=== PATIENT | female | born 1995 | race American Indian/Alaskan Native ===

== ENCOUNTER 2018-09-10 07:10 | Inpatient (IN) | payer OTHER ==
[2018-09-10 07:52] VITALS: BMI 24.3
[2018-09-10] MEDS ORDERED: cefOXitin IV 2 gm in Dextrose 2 GM/50 ML BAG IVPB ONE ×2 (07:54→08:29)
[2018-09-10] MEDS ORDERED: Lactated Ringer's 1,000 ML IV ONE (07:54)
[2018-09-10] MEDS ORDERED: Sodium Citrate/Citric Acid 15 ml Sol PO ONE (07:54)
[2018-09-10 08:29] LABS: BASO % 0.4 % (0.0-2.0); EOS # 0.1 K/uL (0.0-0.7); EOS % 1.4 % (0.0-4.0); HEMOGLOBIN 10.4 g/dL (11.0-16.0); LYMPH # 1.9 K/uL (1.0-4.3); LYMPH % 23.2 % (20.0-40.0); MEAN CELL VOLUME 96.8 fL (81.0-99.0); MEAN CORPUSCULAR HEMOGLOBIN 31.7 pg (27.0-31.0); MEAN CORPUSCULAR HGB CONC 32.8 g/dL (33.0-37.0); MEAN PLATELET VOLUME 9.3 fL (7.2-11.7); MONO # 0.7 K/uL (0.0-0.8); MONO % 8.3 % (0.0-10.0); NEUT # 5.6 K/uL (1.8-7.0); NEUT % 66.7 % (50.0-75.0); RBC 3.28 Mil/uL (3.80-5.20); WHITE BLOOD COUNT 8.4 K/uL (4.8-10.8)
[2018-09-10] MEDS ORDERED: Sodium Citrate/Citric Acid 15 ml Sol ONE (08:29)
[2018-09-10] MEDS ORDERED: ePHEDrine 50 mg/ml Inj ONE (08:35)
[2018-09-10] MEDS ORDERED: Phenylephrine 10 mg/ml Inj ONE (08:35)
[2018-09-10] MEDS ORDERED: Morphine 1 mg/ml preservative-free Inj(Duramorph) ONE ×2 (08:36→18:34)
[2018-09-10 08:45] LABS: ALB/GLOB RATIO 1.4 (1.0-2.1); ALBUMIN 3.7 g/dL (3.5-5.0); ALT/SGPT 16 U/L (9-52); AST/SGOT 35 U/L (14-36); BLOOD UREA NITROGEN 12 mg/dL (7-17); CALCIUM 8.7 mg/dl (8.6-10.4); GFR NON-AFRICAN AMERICAN > 60
--- NOTE | 2018-09-10 09:01 | OBHP ---
Datetime: 09/10/2018 07:33 IP Chief Complaint: Uterine contractions; Suspected ruptured membranes
[2018-09-10 09:16] LABS: HEPATITIS B SURFACE AG Negative (NEGATIVE)
[2018-09-10] MEDS ORDERED: Oxytocin 20 units in LR 2,000 ML IV ONE (09:24)
[2018-09-10] MEDS ORDERED: Oxytocin 10 Units/ml Inj ONE (09:26)
[2018-09-10] MEDS ORDERED: Midazolam 2 MG/2 ML VIAL ONE ×2 (09:31→16:21)
[2018-09-10 11:32] LABS: SQUAMOUS EPITHIAL 1 /hpf (0-5); URINE BILIRUBIN NEGATIVE (NEGATIVE); URINE BLOOD NEGATIVE (NEGATIVE); URINE CLARITY Clear (Clear); URINE COLOR Yellow (YELLOW); URINE GLUCOSE (UA) NORMAL (Normal); URINE LEUKOCYTE ESTERASE NEG Leu/uL (Negative); URINE PROTEIN NEGATIVE (NEGATIVE); URINE UROBILINOGEN NORMAL mg/dL (0.2-1.0)
--- NOTE | 2018-09-10 11:37 | OBDS ---
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 RN Comments: Father of Baby present for delivery. Accompanied to nursery from OR for paterna l bonding. Provider Comments: Primary LTC C/S secondary to Satya Breech presentation, SROM and active labor. In larry delivered from RSA position with difficulty because presenting part was down at 0-+1 station. Li ght meconium noted from AF and bulb syringe was utilizedd to suctioned naso and oropharynx at time of delivery. Cord blood and cord pH obtained and sent. Placenta delivered complete and intact and sent to Pathology. Apgars 9_9 and BW 6 lbs 2oz. Pt and both tolerated the procedure well and remained in Stable and Satisfactory condition . Retirement Officer: Dr. Mullins Personal Injury Legal Assistant: Dr. Winston LABOR SUMMARY EDC: 09/22/2018 00:00 No. Babies in Womb: 1 Attempted: No Labor Anesthesia: Intrathecal LABOR INFORMATION Reason for Induction: Not Applicable Reason for Induction Other: N/A Onset of Labor: 09/10/2018 06:45 Other Ripening Agents: N/A Oxytocin: N/A Group B Beta Strep: Unknown Antibiotics # of Doses: 1 Antibiotics Time of Last Dose: Prior to OR - Mefoxin 2gm Steroids Given: None Reason Steroids Not Administered: Not Applicable Other Reason Not Administered: N/A MEMBRANES Membranes Rupture Method: Spontaneous Rupture of Membranes: 09/10/2018 06:30 Length of Rupture (hrs): 2.93 Amniotic Fluid Color: Clear Amniotic Fluid Amount: Large Amniotic Fluid Odor: Normal STAGES OF LABOR Stage 3 hrs: 0 Stage 3 min: 2 Total Time in Labor hrs: 2 Total Time in Labor min: 43 CSECTION DELIVERY Primary Indication: Breech Presentation Other Primary Indication: N/A Secondary Indication: N/A Other Secondary Indication: N/A CSection Urgency: Emergency CSection Incidence: Primary Labor: Labor Elective: N/A CSection Incision: Lower Uterine Transverse CSection Incision Other: N/A Other Sterilization Procedure: N/A BABY A INFORMATION Delivery Date/Time: 09/10/2018 09:26 Method of Delivery: Born in Route : No : N/A Forceps: N/A Vacuum Extraction: N/A Shoulder Dystocia : No SHOULDER DYSTOCIA BABY A Infant Delivery Date/Time: 09/10/2018 09:26 PRESENTATION/POSITION BABY A Presentation: Breech Cephalic Presentation: N/A Vertex Position: N/A Breech Presentation: Satya PLACENTA INFORMATION BABY A Placenta Delivery Time : 09/10/2018 09:28 Placenta Method of Delivery: Manual Removal Placenta Status: Delivered SCORES BABY A Heart Rate 1 min: >100 bpm Resp Effort 1 min: Good Cry Reflex Irritability 1 min: Cough or Sneeze or Pulls Away Muscle Tone 1 min: Active Motion Color 1 min: Body [place], Extremities Blue Resuscitation Effort 1 min: Tactile Stimulation SCORE 1 MIN: 9 Heart Rate 5 min: >100 bpm Resp Effort 5 min: Good [place] Reflex Irritability 5 min: Cough or Sneeze or Pulls Away Muscle Tone 5 min: Active Motion Color 5 min: Body [place], Extremities Blue Resuscitation Effort 5 min: N/A SCORE 5 MIN: 9 INFORMATION BABY A Gestational Age at Delivery: 38.2 Gestational Status: Term Outcome : Liveborn Infant Condition : Stable Sex: Male IDENTIFICATION/MEDS BABY A ID Band Number: [id number] ID Band Location: Left Leg; Left Arm Sensor Applied: Yes Sensor Number: [id number] Sensor Location : Cord Clamp WEIGHT/LENGTH BABY A Birthweight (gms): 2765 Infant Weight (lb): 6 Weight (oz): 2 Length Inches: 18.00 Length cms: 45.7 CORD INFORMATION BABY A No. Cord Vessels: 3 Nuchal Cord : N/A Nuchal Cord Other: N/A True Knot: N/A Cord pH Baby Arterial: 7.15 Cord pH Baby Venous: 7.33 Cord Blood Taken: Yes Banking/Donate Info: N/A Suction: None; Mouth ASSESSMENT BABY A Complications: Meconium; Other Infant Complications Other: Breech Presentation Physical Findings at Delivery: Within Normal Limits Infant Respirations: Appears Normal Compensation Adjuster/ALS Called : Yes Care By: Dr. Arthur Aden RN Transferred To: [facility]
[2018-09-10] MEDS ORDERED: Oxycodone/Acetaminophen 5/325 mg Tab PO PRN (11:40)
[2018-09-10 12:05] LABS: BARBITURATES, UR NEGATIVE (NEGATIVE); BENZODIAZEPINES, UR NEGATIVE (NEGATIVE); OPIATES, UR NEGATIVE (NEGATIVE); PHENCYCLIDINE, UR NEGATIVE (NEGATIVE)
[2018-09-10] MEDS ORDERED: Bupivacaine HCl 0.5% PF (10 ml) Inj ONE (12:56)
[2018-09-10] MEDS ORDERED: Lidocaine 2% MPF (5 ml) Inj ONE (12:56)
[2018-09-10] MEDS: Simethicone 80 mg Chewtab PO SCH ×3 (14:15→21:24)
--- NOTE | 2018-09-10 15:21 | CP.PCM.CON ---
History of Present Illness - History of Present Illness History of Present Illness: 23 yo female admitted for rupture of membranes s/p delivery of baby by C Section for breech presentation ID consulted for cont of HIV meds Dx with HIV at time of and started on HIV meds with good results after 6-8 weeks gestation Review of Systems - Review of Systems All systems: reviewed and no additional remarkable complaints except - Constitutional Constitutional: As Per HPI - EENT Eyes: absent: As Per HPI, Blind Spots, Blurred Vision, Change in Vision, Decreased Night Vision, Diplopia, Discharge, Dry Eye, Exophthalmos, Floaters, Irritation, Itchy Eyes, Loss of Peripheral Vision, Pain, Photophobia, Requires Corrective Lenses, Sees Flashes, Spots in Vision, Tunnel Vision, Other Visual Disturbances, Loss of Vision, Other Ears: absent: As Per HPI, Decreased Hearing, Ear Discharge, Ear Pain, Tinnitus, Abnormal Hearing, Disequilibrium, Dizziness, Other Nose/Mouth/Throat: absent: As Per HPI, Epistaxis, Nasal Congestion, Nasal Discharge, Nasal Obstruction, Nasal Trauma, Nose Pain, Post Nasal Drip, Sinus Pain, Sinus Pressure, Bleeding Gums, Change in Voice, Dental Pain, Dry Mouth, Dysphagia, Halitosis, Hoarsness, Lip Swelling, Mouth Lesions, Mouth Pain, Odynophagia, Sore Throat, Throat Swelling, Tongue Swelling, Facial Pain, Neck Pain, Neck Mass, Other - Breasts Breasts: absent: As Per HPI, Change in Shape, Mass, Pain, Nipple Discharge, Nipple Inversion, Skin Changes, Swelling, Other - Cardiovascular Cardiovascular: absent: As Per HPI, Acrocyanosis, Chest Pain, Chest Pain at Rest, Chest Pain with Activity, Claudication, Diaphoresis, Dyspnea, Dyspnea on Exertion, Edema, Irregular Heart Rhythm, Pain Radiating to Arm/Neck/Jaw, Leg Edema, Leg Ulcers, Lightheadedness, Orthopnea, Palpitations, Paroxysmal Nocturnal Dyspnea, Pedal Edema, Radiating Pain, Rapid Heart Rate, Slow Heart Rate, Syncope, Other - Respiratory Respiratory: absent: As Per HPI, Cough, Dyspnea, Hemoptysis, Dyspnea on Exert ion, Wheezing, Snoring, Stridor, Pain on Inspiration, Chest Congestion, Excessive Mucous Production, Change in Mucous Color, Pain with Coughing, Other - Gastrointestinal Gastrointestinal: absent: As Per HPI, Abdominal Pain, Belching, Bloating, Change in Bowel Habits, Change in Stool Character, Coffee Ground Emesis, Constipation, Cramping, Diarrhea, Dyspepsia, Dysphagia, Early Satiety, Excessive Flatus, Fecal Incontinence, Heartburn, Hematemesis, Hematochezia, Loose Stools, Melena, Nausea, Odynophagia, Temesmus, Vomiting, Other - Genitourinary Genitourinary: absent: As Per HPI, Change in Urinary Stream, Difficulty U rinating, Dysuria, Flank Pain, Hematuria, Pyuria, Nocturia, Urinary Incontinence, Urinary Frequency, Urinary Hesitance, Urinary Urgency, Voiding Freq/Small Amts, Freq UTI, Hx Renal/Bladder Calculi, Hx /Renal Surgery, Bladder Distension, Other - Reproductive: Female Reproductive:Female: As Per HPI - Menstruation Menstruation: As Per HPI - Musculoskeletal Musculoskeletal: absent: As Per HPI, Abnormal Gait, Arthralgias, Atrophy, Back Pain, Deformity, Joint Swelling, Limited Range of Motion, Loss of Height, Muscle Cramps, Muscle Weakness, Myalgias, Neck Pain, Numbness, Radiating Pain into Limb, Stiffness, Tingling, Other - Integumentary Integumentary: absent: As Per HPI, Acne, Alopecia, Bleeding Lesions, Change in Hair, Change in Nails, Change in Pigmentation, Changing Lesions, Dry Skin, Erythema, Furuncle, Hirsutism, Lesions, New Lesions, Non-Healing Lesions, Photosensitivity, Pruritus, Rash, Skin Pain, Skin Ulcer, Sores, Striae, S welling, Unusual Bruising, Wounds, Jaundice, Other - Neurological Neurological: absent: As Per HPI, Abnormal Gait, Abnormal Hearing, Abnormal Movements, Abnormal Speech, Behavioral Changes, Burning Sensations, Confusion, Convulsions, Disequilibrium, Dizziness, Numbness, Focal Weakness, Frequent Falls, Headaches, Lack of Coordination, Loss of Vision, Memory Loss, Paresthesias, Radicular Pain, Restless Legs, Sensory Deficit, Syncope, Tingling, Tremor, Vertigo, Weakness, Other Visual Disturbances, Other - Psychiatric Psychiatric: absent: As Per HPI, Abnormal Sleep Pattern, Anhedonia, Anxiety, Auditory Hallucinations, Behavioral Changes, Change in Appetite, Change in Libido, Confusion, Depression, Difficulty Concentrating, Hallucinations, Homicidal Ideation, Hopelessness, Irritability, Memory Loss, Mood Swings, Panic Attacks, Paranoia, Suicidal Ideation, Visual Hallucinations, Tactile Hallucinations, Other - Endocrine Endocrine: absent: As Per HPI, Change in Body Appearance, Change in Libido, Cold Intolorance, Deepening of Voice, Excessive Sweating, Fatigue, Flushing, Heat Intolorance, Increase in Ring/Shoe/Hat Size, Palpitations, Polydipsia, Polyphagia, Polyuria, Other - Hematologic/Lymphatic Hematologic: absent: As Per HPI, Easy Bleeding, Easy Bruising, Lymphadenopathy, Other Meds Allergies/Adverse Reactions: Allergies Allergy/AdvReac Type Severity Reaction Status Date / Time No Known Allergies Allergy Verified 09/10/18 07:52 - Medications Medications: Current Medications Bisacodyl (Dulcolax) 10 mg PO ONCE ONE Stop: 09/11/18 10:13 Docusate Sodium (Colace) 100 mg PO BID [facility] Lactated Ringer's (Lactated Ringer's) 1,000 mls @ 999 mls/hr IV .Q1H1M ONE Last Admin: 09/10/18 07:35 Dose: 999 mls/hr Oxytocin (Pitocin 20 Units In Lr) 1,000 mls @ 125 mls/hr IV .Q8H ONE Stop: 09/10/18 18:08 Last Admin: 09/10/18 09:29 Dose: 125 mls/hr Cefoxitin Sodium (Mefoxin Iv 2 Gm Duplex) 2 gm in 50 mls @ 50 mls/hr IVPB Q8H [facility]; Protocol Stop: 09/11/18 09:29 Ketorolac Tromethamine (Toradol) 30 mg IVP Q6 PRN PRN Reason: Pain, severe (8-10) Stop: 09/11/18 06:01 Oxycodone/Acetaminophen (Percocet 5/325 Mg Tab) 1 tab PO Q4H PRN PRN Reason: Pain, moderate (4-7) Stop: 09/13/18 10:10 Oxycodone/Acetaminophen (Percocet 5/325 Mg Tab) 2 tab PO Q4H PRN PRN Reason: Pain, severe (8-10) Stop: 09/13/18 11:41 Multivit/Folic Acid/Iron () 1 tab PO DAILY [facility] Sennosides (Senokot Tab) 17.2 mg PO HS [facility] Simethicone (Mylicon Chew Tab) 80 mg PO QID [facility] Last Admin: 09/10/18 14:15 Dose: 80 mg Physical Exam - Constitutional Appears: Well, Non-toxic, No Acute Distress - Head Exam Head Exam: ATRAUMATIC, NORMAL INSPECTION, NORMOCEPHALIC - Eye Exam Eye Exam: EOMI, Normal appearance, PERRL Pupil Exam: NORMAL ACCOMODATION, PERRL - ENT Exam ENT Exam: Mucous Membranes Moist, Normal Exam - Neck Exam Neck exam: Positive for: Normal Inspection - Respiratory Exam Respiratory Exam: Clear to Auscultation Bilateral, NORMAL BREATHING PATTERN - Cardiovascular Exam Cardiovascular Exam: REGULAR RHYTHM - GI/Abdominal Exam GI & Abdominal Exam: Normal Bowel Sounds, Soft. absent: Tenderness - Rectal Exam Rectal Exam: Deferred - Exam Exam: NORMAL INSPECTION Additional comments: protuberant abd nontender transverse c section incision healiung well - Extremities Exam Extremities exam: Positive for: normal inspection - Back Exam Back exam: NORMAL INSPECTION - Neurological Exam Neurological exam: Alert, CN II-XII Intact, Normal Gait, Oriented x3, Reflexes Normal - Psychiatric Exam Psychiatric exam: Normal Affect, Normal Mood - Skin Skin Exam: Dry, Intact, Normal Color, Warm Results - Labs Result Diagrams: 09/10/18 08:24 09/10/18 08:24 Labs: Laboratory Results - last 24 hr 09/10/18 09/10/18 09/10/18 08:24 08:24 08:24 WBC 8.4 RBC 3.28 L Hgb 10.4 L Hct 31.8 L MCV 96.8 MCH 31.7 H MCHC 32.8 L RDW 13.0 Plt Count 205 MPV 9.3 Neut % (Auto) 66.7 Lymph % (Auto) 23.2 [place] % (Auto) 8.3 Eos % (Auto) 1.4 Baso % (Auto) 0.4 Neut # (Auto) 5.6 Lymph # (Auto) 1.9 [place] # (Auto) 0.7 Eos # (Auto) 0.1 Baso # (Auto) 0.0 Sodium 135 Potassium 3.7 Chloride 108 H Carbon Dioxide 21 L Anion Gap 10 BUN 12 Creatinine 0.6 L Est GFR ( Amer) > 60 Est GFR (Non-Af Amer) > 60 Random Glucose 75 Calcium 8.7 Total Bilirubin 0.8 AST 35 ALT 16 Alkaline Phosphatase 118 Total Protein 6.3 Albumin 3.7 Globulin 2.6 Albumin/Globulin Ratio 1.4 Urine Color Urine Clarity Urine pH Ur Specific [place] Urine Protein Urine Glucose (UA) Urine Ketones Urine Blood Urine Nitrate Urine Bilirubin Urine Urobilinogen Ur Leukocyte Esterase Urine WBC (Auto) Urine RBC (Auto) Ur Squamous Epith Cells Urine Opiates Screen Urine Methadone Screen Ur Barbiturates Screen Ur Phencyclidine Scrn Ur Amphetamines Screen U Benzodiazepines Scrn U Oth Cocaine Metabols U Cannabinoids Screen Hep Bs Antigen Negative HIV 1&2 Antibody Screen Blood Type O POSITIVE Antibody Screen Negative 09/10/18 09/10/18 09/10/18 08:24 11:05 11:05 WBC RBC Hgb Hct MCV MCH MCHC RDW Plt Count MPV Neut % (Auto) Lymph % (Auto) [place] % (Auto) Eos % (Auto) Baso % (Auto) Neut # (Auto) Lymph # (Auto) [place] # (Auto) Eos # (Auto) Baso # (Auto) Sodium Potassium Chloride Carbon Dioxide Anion Gap BUN Creatinine Est GFR ( Amer) Est GFR (Non-Af Amer) Random Glucose Calcium Total Bilirubin AST ALT Alkaline Phosphatase Total Protein Albumin Globulin Albumin/Globulin Ratio Urine Color Yellow Urine Clarity Clear Urine pH 7.0 Ur Specific [place] 1.016 Urine Protein Negative Urine Glucose (UA) Normal Urine Ketones Negative Urine Blood Negative Urine Nitrate Negative Urine Bilirubin Negative Urine Urobilinogen Normal Ur Leukocyte Esterase Neg Urine WBC (Auto) 1 Urine RBC (Auto) 1 Ur Squamous Epith Cells 1 Urine Opiates Screen Negative Urine Methadone Screen Negative Ur Barbiturates Screen Negative Ur Phencyclidine Scrn Negative Ur Amphetamines Screen Negative U Benzodiazepines Scrn Negative U Oth Cocaine Metabols Negative U Cannabinoids Screen Negative Hep Bs Antigen HIV 1&2 Antibody Screen Reactive Blood Type Antibody Screen Assessment & Plan - Assessment and Plan (Free Text) Assessment: Hx HIV asymptomatic s/p c section delivery live baby boy will cont antivirals
[2018-09-10] MEDS: Emtricitabine-Tenofovir 200 mg-300 mg Tab PO SCH (15:47)
[2018-09-10] MEDS: cefOXitin IV 2 gm in Dextrose 2 GM/50 ML BAG IVPB SCH (15:49)
[2018-09-10] MEDS ORDERED: Lidocaine Hydrochloride 20 ML INJ ONE (16:15)
[2018-09-10] MEDS ORDERED: EPINEPHrine 1 mg/ml (1:1000) Inj ONE (16:17)
[2018-09-10] MEDS ORDERED: Ketamine 50 mg/ml Inj (10 ml) ONE (16:21)
[2018-09-10] MEDS ORDERED: Propofol 10 mg/ml Inj (20 ML) ONE (17:51)
[2018-09-10] MEDS ORDERED: Lidocaine Hydrochloride 5 ML INJ ONE (18:15)
[2018-09-10] MEDS: Oxycodone/Acetaminophen 5/325 mg Tab PO PRN (21:23)
[2018-09-11] MEDS: cefOXitin IV 2 gm in Dextrose 2 GM/50 ML BAG IVPB SCH ×2 (00:10→08:30)
[2018-09-11] MEDS: Oxycodone/Acetaminophen 5/325 mg Tab PO PRN ×2 (03:07→08:32)
[2018-09-11 07:42] LABS: HEMOGLOBIN 9.5 g/dL (11.0-16.0); MEAN CORPUSCULAR HEMOGLOBIN 30.8 pg (27.0-31.0); MEAN CORPUSCULAR HGB CONC 32.5 g/dL (33.0-37.0); MEAN PLATELET VOLUME 8.8 fL (7.2-11.7); RBC 3.07 Mil/uL (3.80-5.20); RED CELL DISTRIBUTION WIDTH 12.9 % (11.5-14.5)
[2018-09-11 07:46] LABS: WHITE BLOOD COUNT 14.2 K/uL (4.8-10.8)
[2018-09-11] MEDS: Simethicone 80 mg Chewtab PO SCH ×4 (09:40→22:53)
[2018-09-11] MEDS: Prenatal Multivit/Folic Acid/Iron Tab PO SCH (09:41)
[2018-09-11] MEDS: Emtricitabine-Tenofovir 200 mg-300 mg Tab PO SCH (09:42)
[2018-09-11] MEDS ORDERED: Bisacodyl 5mg EC Tab PO ONE (10:12)
[2018-09-11] MEDS: Oxycodone/Acetaminophen 5/325 mg Tab PO SCH ×3 (11:20→22:51)
[2018-09-12] MEDS: Oxycodone/Acetaminophen 5/325 mg Tab PO SCH ×4 (05:07→23:18)
[2018-09-12] MEDS: Prenatal Multivit/Folic Acid/Iron Tab PO SCH (09:50)
[2018-09-12] MEDS: Simethicone 80 mg Chewtab PO SCH ×4 (09:51→21:11)
[2018-09-12] MEDS: Emtricitabine-Tenofovir 200 mg-300 mg Tab PO SCH (09:52)
--- NOTE | 2018-09-12 14:13 | OBDCSUM ---
Datetime: 09/12/2018 14:11 Discharged to, Provider: Home Follow up at, Provider: Dr Angulo Disch Instr Activity: Normal activity Disch Instr Diet: Regular Discharge Instructions, Provider: Routine instructions given Discharge Diagnosis, Provider: Term Delivered Discharge Time: 09/13/2018 11:00 Follow up in weeks, Provider: 6 weeks Disch Referrals: None Contraception discussed, Prov: Yes Disch Activity Restrictions: No sexual activity; Nothing in vagina - [place], tampons, douche Discharge Comment, Provider: f/u Dr Moya as ifnomred dc in am Discharge Diagnosis Prov Other: HIV postive Contraception after Delivery: Not Planning to Use
--- NOTE | 2018-09-12 14:13 | OBPPN ---
Datetime: 09/12/2018 14:11 PP Pain Prov: Within normal limits PP Nausea Prov: Denies PP Flatus Prov: Yes PP Breasts Prov: Normal PP Heart Prov: Normal PP Lungs Prov: Normal PP Abdomen/Uterus Prov: Normal PP Lochia Prov: Normal PP Vulva/Perineum Prov: Normal PP CVA Tenderness Prov: Normal PP Extremities Prov: Normal PP C/S Incision Prov: Normal PP Progress Prov: Not Applicable PP Comments Phys Exam Prov: inicn c/d/i stapels intackt PP Impression Prov: Normal progression PP Plan Prov: Continue present management Datetime: 09/11/2018 14:13 PP BM Prov: No PP Progress Note Prov: Patient seen and examined this mormning sitting in chair. Patient reports lo wer abdominal pain around incision site that is 5/10. Pt has been taking percocet with some relief. P atient reports scant lochia, used one pad overnight. Pt denies flatus/BM. Patient has not tried ambul ating as of this morning. Patient is tolerating clear liquids, no episodes of nausea/vomtting today. Patient is not breast feeding due to positive HIV status. Patient reports occasional chills and lower right rib pain. Denies fever, chespt pain, headache, lightheadedness, and dizziness. P.E. As above. Assessment and Plan Patient is a 23yo with , HIV+ female, s/p LTPCS secondary to Satya Breech presentation, POD # 1, vitals reviewed and stable, /GI function returning to normal. - continue present post-op managment - encourage ambulation - advance diet as tolerated - percocet and motrin as needed for pain. - Reccomendations appreciated from ID- Dr. Moya Case discussed with Dr. Quiroz. Osiris Walls OMS-III Baldo Mckeon OMS III agree with avoe pt seen and examiend continuve id recms pain managment no bresat feeding IP PP Procedures: None Vital Signs Provider PP: Reviewed; Within Normal Limits
[2018-09-13] MEDS: Oxycodone/Acetaminophen 5/325 mg Tab PO SCH ×3 (05:18→17:39)
[2018-09-13 07:38] LABS: BASO % 0.4 % (0.0-2.0); EOS # 0.1 K/uL (0.0-0.7); EOS % 1.5 % (0.0-4.0); HEMOGLOBIN 9.2 g/dL (11.0-16.0); LYMPH # 1.4 K/uL (1.0-4.3); LYMPH % 17.5 % (20.0-40.0); MEAN CELL VOLUME 96.2 fL (81.0-99.0); MEAN CORPUSCULAR HGB CONC 33.3 g/dL (33.0-37.0); MEAN PLATELET VOLUME 8.1 fL (7.2-11.7); MONO # 0.5 K/uL (0.0-0.8); MONO % 6.7 % (0.0-10.0); NEUT % 73.9 % (50.0-75.0); RBC 2.87 Mil/uL (3.80-5.20); RED CELL DISTRIBUTION WIDTH 12.7 % (11.5-14.5); WHITE BLOOD COUNT 8.1 K/uL (4.8-10.8)
[2018-09-13] MEDS: Prenatal Multivit/Folic Acid/Iron Tab PO SCH (09:50)
[2018-09-13] MEDS: Simethicone 80 mg Chewtab PO SCH ×4 (09:50→21:09)
[2018-09-13] MEDS: Emtricitabine-Tenofovir 200 mg-300 mg Tab PO SCH (09:51)
[2018-09-13] MEDS: Apap-Butalbital-Caffeine 325-50-40mg Tab PO PRN (21:09)
[2018-09-14] MEDS: Oxycodone/Acetaminophen 5/325 mg Tab PO SCH ×2 (00:03→05:58)
[2018-09-14] MEDS: Apap-Butalbital-Caffeine 325-50-40mg Tab PO PRN (01:14)
[2018-09-14 10:10] VITALS: BP 124/65; PULSE 58; RESP 18; O2SAT 99
[2018-09-14] MEDS: Simethicone 80 mg Chewtab PO SCH ×2 (10:45→13:21)
[2018-09-14] MEDS: Prenatal Multivit/Folic Acid/Iron Tab PO SCH (10:45)
[2018-09-14] MEDS: Emtricitabine-Tenofovir 200 mg-300 mg Tab PO SCH (10:47)
[2018-09-14 21:34] VITALS: TEMP 98.3
== END 2018-09-14 14:45 | disposition home or self-care (01) | DRG 787 ==
LOC: C.EROB 07:10 → C.4D 08:00 → C.4M 13:08
PROVIDERS: ADMIT Obstetrics & Gynecology; ATTEND Obstetrics & Gynecology
PROC: 10D00Z1 Extraction of Products of Conception, Low, Open Approach (ICD-10-PCS; principal; 2018-09-10)
DX: O32.1XX0 Maternal care for breech presentation, not applicable or unspecified (principal); O98.72 Human immunodeficiency virus [HIV] disease complicating childbirth; O77.0 Labor and delivery complicated by meconium in amniotic fluid; Z21 Asymptomatic human immunodeficiency virus [HIV] infection status; Z3A.38 38 weeks gestation of pregnancy; Z37.0 Single live birth